=== PATIENT | female | born 1960 | race Caucasian/White ===

== ENCOUNTER 2021-08-09 12:28 | Emergency (ER) | payer BC, SELFPAY ==
--- NOTE | ~2021-08-09 | CT_ITS ---
EXAMINATION: CT cervical spine wo con DATE: 08/09/2021 13:34 INDICATION: Head injury post fall TECHNIQUE: Computed tomography (CT) of the cervical spine was performed without intravenous contrast. Automated exposure control and iterative reconstruction technique were employed. The dose-length pro duct was 437.86 mGy-cm. COMPARISON: None FINDINGS: Straightening of the normal cervical lordosis which is likely positional. Moderate osteoarthritis at the atlantoaxial articulation with small amount of surrounding partially calcified pannus. Chronic ap pearing minimal anterior wedging at C6. Remaining vertebral body heights are normal. No acute fractur e. Moderate disc height loss at C4-C5 and C5-C6. Mild disc height loss at C2-C3, C3-C4 and C6-C7. Dis c bulges at C3-C4 and C4-C5 result in mild central canal stenosis at these levels. Severe uncovertebr al osteoarthritis on the right at C4-C5. Mild uncovertebral osteoarthritis at many of the remaining l evels. Severe facet osteoarthritis in the left at C2-C3, C3-C4 and C4-C5. Mild to moderate facet oste oarthritis in the remainder of the cervical spine. Minimal neural foraminal stenosis on the left at C 3-C4 on the right at C4-C5. 2.8 cm right thyroid mass. Cervical soft tissues are otherwise unremarkab le. Visualized portions of the airway and apices of the lungs are clear. IMPRESSION: 1. Mild to moderate cervical spondylosis with chronic appearing minimal anterior wedging at C6. No ev ident acute osseous abnormality. 2. 2.8 cm right thyroid mass. Consider thyroid ultrasound for risk stratification and possible biopsy . Reviewed, dictated and finalized at location A. IMPRESSION: 1. Mild to moderate cervical spondylosis with chronic appearing minimal anterio r wedging at C6. No evident acute osseous abnormality. 2. 2.8 cm right thyroid mass. Consider thyroid ultrasound for risk stratificati on and possible biopsy.
--- NOTE | ~2021-08-09 | CT_ITS ---
EXAMINATION: CT brain wo con DATE: 08/09/2021 13:34 INDICATION: Head injury post fall TECHNIQUE: Computed tomography (CT) of the head was performed without intravenous contrast. Sagittal and coronal reconstructions were performed. The mA was adjusted according to patient size. Iterative reconstruction technique was employed. The dose-length product was 529.67 mGy-cm. COMPARISON: None FINDINGS: Prominent left parieto-occipital scalp hematoma. No fracture. No acute intracranial hemorrhage, acute infarction or abnormal extra axial fluid collection. Ventricles are normal and symmetric. No mass/ma ss effect. Mild mucosal thickening the bilateral ethmoid sinuses. The orbits and mastoid air cells ar e normal. IMPRESSION: 1. No fracture or acute intracranial process. Reviewed, dictated and finalized at location A.
[2021-08-09 12:31] VITALS: BP 169/88; PULSE 88; RESP 17; TEMP 36.2; O2SAT 99
--- NOTE | 2021-08-09 12:44 | ED.FALL ---
HPI - Fall General Chief Complaint: Fall Stated Complaint: fall Time Seen by Provider: 08/09/21 12:39 Source: patient Mode of arrival: ambulatory Limitations: no limitations History of Present Illness HPI Narrative: Patient is a 61-year-old female complaining of head and neck pain, 5 out of 10, dull, after she lost her balance going up a brick step while holding 2 bags in each hand, fell backwards and hit her head. Patient denies any loss of consciousness. Patient denies any symptoms prior to the fall. Patient denies any chest, abdomen, back, pelvis, hip or any extremity pain/injury. Related Data Allergies Allergy/AdvReac Type Severity Reaction Status Date / Time Sulfa (Sulfonamide Allergy Rash Verified 08/09/21 14:08 Antibiotics) Review of Systems Review of Systems: All systems reviewed & are unremarkable except as noted in HPI and below Constitutional: Constitutional: Denies body ache(s), Denies chills, Denies excessive sweating, Denies fatigue, Denies fever(s), Denies headache(s), Denies lethargy, Denies malaise, Denies weakness and Denies weight loss Eyes: Eyes: Denies blurry vision, Denies change in vision and Denies loss of vision ENT: Denies dizziness, Denies ear discharge, Denies headache(s), Denies lip swelling, Denies epistaxis, Denies nasal congestion, Denies neck pain, Denies throat swelling and Denies tongue swelling Cardiovascular: Cardiovascular: Denies chest pain, Denies chest pain at rest, Denies chest pain with activity, Denies diaphoresis, Denies rapid heart rate, Denies edema, Denies irregular heart rhythm, Denies lightheadedness, Denies palpitations, Denies dyspnea and Denies dyspnea on exertion Respiratory: Respiratory: Denies chest congestion, Denies cough, Denies hemoptysis, Denies dyspnea and Denies dyspnea on exertion Gastrointestinal: Gastrointestinal: Denies abdominal pain, Denies melena, Denies hematochezia, Denies diarrhea, Denies nausea, Denies vomiting and Denies hematemesis Musculoskeletal: Musculoskeletal: Denies abnormal gait, Denies deformity, Denies joint swelling, Denies limited range of motion, Denies neck pain and Denies numbness Neurologic: Denies Abnormal speech present, Denies abnormal gait, Denies confusion, Denies dizziness, Denies headache(s), Denies focal weakness, Denies loss of vision, Denies numbness, Denies Other visual disturbances, Denies Sensory deficit (Neuro) and Denies weakness Psychiatric: Psychiatric: Denies confusion, Denies depression, Denies auditory hallucinations, Denies homicidal ideation and Denies suicidal ideation Endocrine: Endocrine: Denies cold intolerance, Denies excessive sweating, Denies fatigue, Denies heat intolerance and Denies palpitations Hematologic/Lymphatic: Hematologic/Lymphatic: Denies easy bleeding and Denies easy bruising Allergic/Immunologic: Allergic/Immunologic: Denies lip swelling, Denies throat swelling and Denies tongue swelling PMFSH Comments Past medical history: Hypertension Family history: Hypertension Social history: Non-smoker no EtOH or drug use Exam Const: General: cooperative, healthy appearing, comfortable, no acute distress, well developed, alert and awake; No confusion Orientation/consciousness: oriented to person, oriented to place, oriented to time, patient oriented x3 and No confusion Limitations: no limitations HENMT: Head: normal to inspection, normocephalic and atraumatic Ears: hearing grossly normal bilaterally, TM normal on the right and TM normal on the left General nose exam: Normal external nose present, Normal nares present and No nasal discharge present Face and sinus: normal facial exam Mouth: Yes Normal oral and palatal mucosa present, Yes lip normal, Yes tongue normal and Yes oropharynx normal Throat: posterior oropharynx normal, tonsils normal and uvula midline Other: Contusion hematoma occipital head Eyes: General: appearance normal, both eyes and all related structures Pupils: Equal, round and r
[2021-08-09] MEDS: ACETAMINOPHEN 325 MG TABLET 650 MG PO (14:08)
[2021-08-09] MEDS: Please add drug allergy info to patient profile. XX (14:08)
[2021-08-09 14:09] VITALS: BP 146/64; PULSE 72; RESP 12; O2SAT 98
[2021-08-09] MEDS: KETOROLAC 30 MG/ML VIAL (*BKC) IV PUSH (14:23)
== END 2021-08-09 14:30 | disposition home or self-care (01) ==
PROVIDERS: Emergency Provider Emergency Medicine
DX: S09.90XA Unspecified injury of head, initial encounter (principal); S16.1XXA Strain of muscle, fascia and tendon at neck level, initial encounter; I10 Essential (primary) hypertension; W10.9XXA Fall (on) (from) unspecified stairs and steps, initial encounter
CPT/HCPCS: 70450; 72125; 96374; 99284; A9270; J1885